=== PATIENT | female | born 1980 | race Caucasian/White ===

== ENCOUNTER 2021-03-06 01:11 | Inpatient (IN) | payer OTHER ==
[~2021-03-06] VITALS: Ht 162.6 cm; Wt 124.9 kg
[2021-03-06 01:12] VITALS: BP 131/69
[2021-03-06 01:55] LABS: BASOPHILS 0.2 % (0.0-2.0); EOSINOPHILS 0.3 % (0.0-3.0); POLYS 90.2 % (36.0-66.0)
[2021-03-06 01:57] LABS: ABSOLUTE NEUTROPHILS 8.9 thou/uL (1.4-8.2); HEMATOCRIT 37.5 % (37.0-47.0); LYMPHOCYTES 8.5 % (24.0-44.0); MCH 25.5 pg (26.0-34.0); MCV 79.7 fL (80.0-100.0); MONOCYTES 0.8 % (1.0-8.0); PLATELET COUNT 386 thou/uL (150-400); RBC 4.71 mil/uL (4.20-5.00); RDW 17.7 % (10.5-14.5); WBC 9.9 thou/uL (4.0-11.0)
[2021-03-06 01:59] LABS: CALCIUM 8.1 mg/dL (8.5-10.1); CREATININE 0.9 mg/dL (0.6-1.0); POTASSIUM 3.7 mmol/L (3.5-5.1)
[2021-03-06 02:05] LABS: ALBUMIN 3.2 g/dL (3.4-5.0); TOTAL BILIRUBIN 0.4 mg/dL (0.2-1.0); TOTAL PROTEIN 6.9 g/dL (6.4-8.2)
[2021-03-06 02:43] LABS: URINE BILIRUBIN NEGATIVE (Negative); URINE BLOOD 2+ (Negative); URINE CLARITY CLEAR; URINE COLOR YELLOW; URINE GLUCOSE-RANDOM* NEGATIVE (Negative); URINE KETONES NEGATIVE (Negative); URINE LEUKOCYTES-REFLEX NEGATIVE (Negative); URINE NITRITE-REFLEX NEGATIVE (Negative); URINE PROTEIN (DIPSTICK) NEGATIVE (Negative); URINE UROBILINOGEN 0.2 E.U./dl (0.2-1.0)
[2021-03-06 03:29] LABS: BACTERIA-REFLEX 1-9 Few /HPF (None Seen); CASTS None Seen /LPF (None Seen); CRYSTALS None Seen /LPF (None Seen); MUCUS 4-6 Moderate strn/LPF (None Seen); SQUAMOUS 4-10 Moderate /LPF (0-3); URINE WBC-REFLEX 0-5 Rare /HPF (0-5)
[2021-03-06] MEDS ORDERED: LISINOPRIL20 MG PO (07:45)
[2021-03-06] MEDS ORDERED: NEURONTIN 400M400 M2 PO (07:46)
[2021-03-06] MEDS ORDERED: LORATIDINE 10 M10 M1 PO (07:46)
[2021-03-06] MEDS ORDERED: OMEPRAZOLE 20 M20 M1 PO (07:47)
[2021-03-06] MEDS ORDERED: AMITRIPTYLINE H25 M3 PO (07:47)
[2021-03-06] MEDS ORDERED: FLEXERIL PO (07:47)
[2021-03-06] MEDS ORDERED: NORVASC10 MG PO (07:48)
--- NOTE | 2021-03-06 07:48 | NUR ---
WHEN COMPLETING MED RECONCILIATION, IT WAS NOTED THAT PT HAD 2 PRESCRIPTION BOTTLES WITH SOMEONE ELSE'S NAME ON THEM. MEDICATIONS WERE CARISOPRODOL 350MG TABLETS & OXYCODONE IR 5MG TABLETS. WHEN INQUIRING ABOUT THIS WITH PT, PT STATED THAT THE PRESCRIPTIONS BELONGED TO HER MOTHER AND SHE "TAKES THEM WHEN SHE NEEDS THEM" 2 SEPERATE NAMES WERE FOUND ON PRESCRIPTION BOTTLES. PHYSICIAN NOTIFIED OF FINDING.
--- NOTE | 2021-03-06 09:44 | EKG ---
[address] [place] [employer] [place] [address] ELECTROCARDIOGRAM REPORT Name: PATTI JIMÉNEZ Room #: 170-10 ADM IN M.R.#: [id number] Admission: 03/06/21 Attend Phys: Tavon Baker Discharge: Date of : 84 Report #: [id number] [facility] ED Test Date: 2021-03-06 Test Time: 01:16:41 Pat Name: PATTI JIMÉNEZ Department: Room: 170 Gender: F Senior Sustainability Consultant: chhaya : 1980 Requested By: Andres Zhong Order Number: [id number] MD: Gregory Corbin Measurements Intervals [place] Rate: 142 P: 50 [place]: 121 QRS: 53 QRSD: 88 T: -31 QT: 304 QTc: 467 Interpretive Statements Sinus tachycardia Borderline repolarization abnormality No previous ECG available for comparison Electronically Signed On 03-06-2021 9:44:41 CDT by Gregory Corbin [email or web address] <ELECTRONICALLY SIGNED> By: Gregory Corbin MD, [facility] 03/06/21 [id number] Gregory Corbin MD, FACC /EPI
[2021-03-06 10:30] VITALS: BP 107/62
[2021-03-06 13:18] VITALS: BP 107/62
[2021-03-06 14:23] VITALS: BP 106/43
[2021-03-06 15:23] VITALS: BP 117/69
--- NOTE | 2021-03-06 17:32 | NUR ---
40-year-old female without significant past medical history presenting today for evaluation of fever. Patient reportedly has been having generalized body aches as well as fever for the last couple days. The patient is listed per ED record as A&0 times 4 and possible admission for empiric antibiotics, IVF's and [employer] consult. Once plan is determined CM will assist as needed for discharge planning.
--- NOTE | 2021-03-06 18:24 | NUR ---
PATIENT ARRIVED TO FLOOR FROM ER TO ROOM 443, ON ROOM AIR, UP WITH SBA, VITAL SIGNS STABLE, AFBRIELE, CALL LIGHT WITH IN REACH WILL CONTINUE TO MONITOR.
[2021-03-06 19:35] VITALS: BP 117/81
--- NOTE | 2021-03-06 23:48 | NUR ---
ASSUMED PT CARE AT 1900.PT'S DTRS HERE AT HE BEDSIDE IMMEDIATELY AFTER SHIFT CHANGE.PT C/O HEADACHE,MANAGED WITH MED.PT CONT ON IVF AND IV ABX.PT AFEBRILE SO FAR.UP WITH SBA.PER REPORT,PT HAS MEDS IN THE PHARMACY.PT RESTING ON HER BED AT THIS TIME.REPORT GIVEN TO THE NEXT NURSE TAKING OVER PT'S CARE AT 2330.
[2021-03-07 01:06] LABS: HIV ANTIBODY Non Reactive (Non Reactive)
[2021-03-07 04:05] VITALS: BP 109/89
[2021-03-07 07:27] VITALS: BP 149/95
--- NOTE | 2021-03-07 15:52 | NUR ---
ASSESSMENT:CM REVIEWED CHART AND SPOKE WITH PATIENT. PT APPEARS ALERT AND ORIENTED X4. PT WAS ADMITTED DUE TO FEVER AND FEELINGS OF MALAISE, SIRS. PT IS CURRENTLY ON IV ANBX. DR. PIERRE WAS ALSO CONSULTED DUE TO ENDOMETRIUM THICKENING AND ULTRASOUND ORDERED. PT REPORTS LIVING IN AN APT WITH HER YOUNGEST CHILD. PT REPORTS HAVING NO STEPS TO ENTER OR ONCE INSIDE. PT REPORTS SHE IS FULLY INDEPENDENT WITH ADLS AND AMBULATION. PT HAS NO PAST HX OF HH. PT REPORTS HER PCP IS MATILDA MADERA. PT REPORTS HER DAUGHTER IS REQUESTING [facility] PAPERWORK TO BE COMPLETED SO HE CAN BE OFF WORK TO ASSIST HER MOTHER. CM NOTIFIED ATTENDING WHO REPORTS TO LEAVE IN HOSPITALIST OFFICE AND HE WILL ATTEMPT TO COMPLETE. CM PROVIDED PAPERWORK TO ATTENDING. CM WILL CONTINUE TO FOLLOW TO ASSIST NEEDED. PT DOES NOT ANTICIPATE ANY NEEDS FROM CM. PTS DAUGHTER HARINI REQUESTING THE [facility] PAPERWORK CAN BE REACHED AT [phone].
[2021-03-07 15:54] VITALS: BP 132/72
[2021-03-07] MEDS ORDERED: HYDROCHLOROTHIA25 M1 PO (16:58)
[2021-03-07] MEDS ORDERED: ROPINIROLE HCL0.5 MG PO (17:00)
[2021-03-07] MEDS ORDERED: DULOXETINE HCL30 MG PO (17:03)
--- NOTE | 2021-03-07 17:22 | NUR ---
Pt had a fever of 101.7 this am. AXOX4. She was shaking and stated she was in level [address] Baker regarding getting additional pain medication. He stated he knew this pt and ordered ativan 1mg. She was given tylenol for fever which resolved. Pt was having orthostatic hypotension. She is able to get up with assist X1 to BSC. At 17:30 pt had the [employer] calling from [phone] to release her brother Cornelio Evangelista from active duty in the [employer] to be released to help her with her medical condition. Dced IV in right hand. Left hand IV running NS at 126ml/hr. Bed in low position fall precautions in place. Call light is within reach.
[2021-03-07 19:35] VITALS: BP 136/86
[2021-03-08 01:48] VITALS: BP 140/97
[2021-03-08 07:55] VITALS: BP 147/85
--- NOTE | 2021-03-08 07:56 | NUR ---
PT AMBULATING TO BATHROOM INDEPENDENTLY AND IS TOLERATING FAIR. LORTAB PROVIDING PAIN RELIEF. RESTING COMFORTABLY. NO NEEDS VOICED. CALL LIGHT WITHIN REACH. FREQUENT OBSERVATION.
[2021-03-08] MEDS ORDERED: CEFUROXIME500 MG PO (09:34)
[2021-03-08] MEDS ORDERED: GUAIFEN-CODEINE10 ML PO (09:48)
--- NOTE | 2021-03-08 10:12 | NUR ---
Pt AXOX4. C/o 12/24 out of pain medicated per order. No BM today. Lungs clear bowels sounds active. Pt states she has a migraine headache. Bed in low position fall precaution in place. Discharge order received. Will monitor until discharge.
== END 2021-03-08 14:10 | disposition home or self-care (01) | DRG 690 ==
LOC: ER 01:11 → 4S 08:25 → EROBS 08:25 → 4S 14:51
PROVIDERS: Emergency Medicine; ADMIT Hospitalist; ATTEND Hospitalist
DX: N30.90 Cystitis, unspecified without hematuria (principal); R65.10 Systemic inflammatory response syndrome (SIRS) of non-infectious origin without acute organ dysfunction; K76.0 Fatty (change of) liver, not elsewhere classified; R93.89 Abnormal findings on diagnostic imaging of other specified body structures; N26.1 Atrophy of kidney (terminal); I10 Essential (primary) hypertension; Z20.822 Contact with and (suspected) exposure to COVID-19; Z88.2 Allergy status to sulfonamides; Z88.8 Allergy status to other drugs, medicaments and biological substances; Z79.899 Other long term (current) drug therapy
CPT/HCPCS: 10100; 10102